=== PATIENT | female | born 1950 | race Caucasian/White ===

== ENCOUNTER 2016-02-10 08:20 | Outpatient (CLI) | payer MEDICARE, OTHER | END 2016-02-10 08:21 | disposition home or self-care (01) | DX: I10 Essential (primary) hypertension (principal); D50.8 Other iron deficiency anemias ==

== ENCOUNTER 2016-03-22 08:07 | Outpatient (CLI) | payer MEDICARE, OTHER | END 2016-03-22 08:08 | disposition home or self-care (01) | DX: I10 Essential (primary) hypertension (principal); D50.8 Other iron deficiency anemias ==

== ENCOUNTER 2016-10-18 08:03 | Outpatient (CLI) | payer MEDICARE, OTHER ==
[2016-10-18 20:05] LABS: FERRITIN 5.9 ng/mL (11.0-306.8)
[2016-10-18 20:09] LABS: FOLATE 6.42 ng/mL (5.90 - >24.8)
[2016-10-18 20:10] LABS: BASOPHILS # (AUTO) 0.1 10^3/uL (0.0-0.1); BASOPHILS % (AUTO) 0.8 %; EOSINOPHILS # (AUTO) 0.2 10^3/uL (0.0-0.7); EOSINOPHILS % (AUTO) 1.9 %; HCT - HEMATOCRIT 29.8 % (37.0-47.0); HGB - HEMOGLOBIN 9.2 g/dL (12.0-16.0); LYMPHOCYTES % (AUTO) 24.6 %; MEAN CORPUSCULAR HEMOGLOBIN 21.3 pg (27.0-31.0); MEAN CORPUSCULAR HGB CONC 30.7 g/dL (32.0-36.0); MEAN CORPUSCULAR VOLUME 69.5 fL (81.0-99.0); MONOCYTES # (AUTO) 0.7 10^3/uL (0.0-1.0); MONOCYTES % (AUTO) 8.3 %; NEUTROPHILS # (AUTO) 5.3 10^3/uL (1.5-6.6); NEUTROPHILS % (AUTO) 64.4 %; NUCLEATED RED BLOOD CELLS AUTO 0.1 /100WBC; RED BLOOD COUNT 4.29 10^6/uL (4.20-5.40); RED CELL DISTRIBUTION WIDTH 18.5 % (12.0-15.0); UNCORRECTED WHITE BLOOD COUNT 8.3 x10^3/uL; WHITE BLOOD COUNT 8.3 x10^3/uL (4.8-10.8)
[2016-10-18 20:34] LABS: ALBUMIN/GLOBULIN RATIO 1.1 (1.0-2.2); BILIRUBIN,TOTAL 0.3 mg/dL (0.2-1.0); CALCIUM 8.7 mg/dL (8.5-10.3); CREATININE 0.8 mg/dL (0.4-1.0); POTASSIUM 3.6 mmol/L (3.5-5.0); TOTAL PROTEIN 7.2 g/dL (6.7-8.2)
== END 2016-10-18 08:04 | disposition home or self-care (01) ==
LOC: LAB.N 08:03
PROVIDERS: ATTEND Family Medicine
DX: D50.8 Other iron deficiency anemias (principal); F33.1 Major depressive disorder, recurrent, moderate
CPT/HCPCS: 36415; 80053; 82607; 82728; 82746; 83540; 84466; 85025

== ENCOUNTER 2017-02-01 13:40 | Outpatient (CLI) | payer MEDICARE, OTHER ==
[2017-02-01 18:49] LABS: BASOPHILS # (AUTO) 0.1 10^3/uL (0.0-0.1); BASOPHILS % (AUTO) 1.4 %; EOSINOPHILS # (AUTO) 0.2 10^3/uL (0.0-0.7); EOSINOPHILS % (AUTO) 1.9 %; HCT - HEMATOCRIT 31.9 % (37.0-47.0); HGB - HEMOGLOBIN 9.6 g/dL (12.0-16.0); LYMPHOCYTES # (AUTO) 2.2 10^3/uL (1.5-3.5); LYMPHOCYTES % (AUTO) 24.6 %; MEAN CORPUSCULAR HEMOGLOBIN 20.7 pg (27.0-31.0); MEAN CORPUSCULAR VOLUME 68.8 fL (81.0-99.0); MEAN PLATELET VOLUME 8.6 fL (7.9-10.8); MONOCYTES # (AUTO) 0.7 10^3/uL (0.0-1.0); MONOCYTES % (AUTO) 7.6 %; NEUTROPHILS # (AUTO) 5.7 10^3/uL (1.5-6.6); NEUTROPHILS % (AUTO) 64.5 %; RED BLOOD COUNT 4.63 10^6/uL (4.20-5.40); RED CELL DISTRIBUTION WIDTH 20.3 % (12.0-15.0); UNCORRECTED WHITE BLOOD COUNT 8.9 x10^3/uL; WHITE BLOOD COUNT 8.9 x10^3/uL (4.8-10.8)
[2017-02-01 19:07] LABS: IRON 16 ug/dL (28-170); TOTAL IRON BINDING CAPACITY 585 ug/dL (250-450); TRANSFERRIN 418 mg/dL (192-382)
[2017-02-01 19:21] LABS: FERRITIN 7.2 ng/mL (11.0-306.8)
[2017-02-01 19:52] LABS: PLATELET ESTIMATE, MANUAL NORMAL (130-450,000) (NORMAL); PLATELET MORPHOLOGY NORMAL APPEARANCE (NORMAL)
== END 2017-02-01 13:41 | disposition home or self-care (01) ==
LOC: LAB.N 13:40
PROVIDERS: ATTEND Family Medicine
DX: D51.8 Other vitamin B12 deficiency anemias (principal); D50.8 Other iron deficiency anemias
CPT/HCPCS: 36415; 82607; 82728; 83540; 84466; 85025

== ENCOUNTER 2017-08-03 08:00 | Outpatient (CLI) | payer MEDICARE, OTHER ==
[2017-08-03 12:46] LABS: BASOPHILS # (AUTO) 0.1 10^3/uL (0.0-0.1); BASOPHILS % (AUTO) 0.9 %; EOSINOPHILS # (AUTO) 0.2 10^3/uL (0.0-0.7); EOSINOPHILS % (AUTO) 2.4 %; HGB - HEMOGLOBIN 8.8 g/dL (12.0-16.0); LYMPHOCYTES % (AUTO) 26.3 %; MEAN CORPUSCULAR HEMOGLOBIN 22.4 pg (27.0-31.0); MEAN CORPUSCULAR HGB CONC 31.4 g/dL (32.0-36.0); MEAN CORPUSCULAR VOLUME 71.5 fL (81.0-99.0); MEAN PLATELET VOLUME 8.5 fL (7.9-10.8); MONOCYTES # (AUTO) 0.6 10^3/uL (0.0-1.0); MONOCYTES % (AUTO) 8.2 %; NEUTROPHILS # (AUTO) 4.6 10^3/uL (1.5-6.6); NEUTROPHILS % (AUTO) 62.2 %; PLT - PLATELET COUNT 271 10^3/uL (130-450); RED BLOOD COUNT 3.94 10^6/uL (4.20-5.40); RED CELL DISTRIBUTION WIDTH 23.1 % (12.0-15.0); WHITE BLOOD COUNT 7.4 x10^3/uL (4.8-10.8)
[2017-08-03 13:02] LABS: FERRITIN 6.5 ng/mL (11.0-306.8)
[2017-08-03 13:57] LABS: PLATELET ESTIMATE, MANUAL NORMAL (130-450,000) (NORMAL); PLATELET MORPHOLOGY NORMAL APPEARANCE (NORMAL)
== END 2017-08-03 08:01 | disposition home or self-care (01) ==
LOC: LAB.N 08:00
PROVIDERS: ATTEND Family Medicine
DX: D51.8 Other vitamin B12 deficiency anemias (principal); D50.8 Other iron deficiency anemias
CPT/HCPCS: 36415; 82607; 82728; 85025

== ENCOUNTER 2018-02-16 13:45 | Outpatient (CLI) | payer MEDICARE, OTHER ==
[2018-02-16 19:01] LABS: BASOPHILS # (AUTO) 0.1 10^3/uL (0.0-0.1); BASOPHILS % (AUTO) 0.8 %; EOSINOPHILS # (AUTO) 0.1 10^3/uL (0.0-0.7); EOSINOPHILS % (AUTO) 1.5 %; HGB - HEMOGLOBIN 12.8 g/dL (12.0-16.0); LYMPHOCYTES # (AUTO) 2.3 10^3/uL (1.5-3.5); LYMPHOCYTES % (AUTO) 28.9 %; MEAN CORPUSCULAR HEMOGLOBIN 27.5 pg (27.0-31.0); MEAN CORPUSCULAR HGB CONC 31.9 g/dL (32.0-36.0); MEAN CORPUSCULAR VOLUME 86.2 fL (81.0-99.0); MEAN PLATELET VOLUME 8.9 fL (7.9-10.8); MONOCYTES # (AUTO) 0.5 10^3/uL (0.0-1.0); MONOCYTES % (AUTO) 6.1 %; NEUTROPHILS # (AUTO) 5.1 10^3/uL (1.5-6.6); NEUTROPHILS % (AUTO) 62.7 %; PLT - PLATELET COUNT 207 10^3/uL (130-450); RED BLOOD COUNT 4.64 10^6/uL (4.20-5.40); RED CELL DISTRIBUTION WIDTH 17.5 % (12.0-15.0); WHITE BLOOD COUNT 8.1 x10^3/uL (4.8-10.8)
[2018-02-16 19:27] LABS: PLATELET ESTIMATE, MANUAL NORMAL (130-450,000) (NORMAL); PLATELET MORPHOLOGY NORMAL APPEARANCE (NORMAL); RBC MORPHOLOGY (MULTIPLE) 1+ ANISOCYTOSIS (NORMAL)
[2018-02-16 19:44] LABS: ALBUMIN/GLOBULIN RATIO 1.3 (1.0-2.2); BILIRUBIN,TOTAL 0.4 mg/dL (0.2-1.0); CALCIUM 8.9 mg/dL (8.5-10.3); CREATININE 1.2 mg/dL (0.4-1.0); TOTAL PROTEIN 7.2 g/dL (6.7-8.2)
[2018-02-16 20:02] LABS: FERRITIN 42.5 ng/mL (11.0-306.8)
[2018-02-16 20:05] LABS: FOLATE 5.14 ng/mL (5.90 - >24.8)
== END 2018-02-16 23:59 | disposition home or self-care (01) ==
LOC: LAB.N 13:45
PROVIDERS: ATTEND Internal Medicine Hematology & Oncology
DX: D50.9 Iron deficiency anemia, unspecified (principal); N18.3 Chronic kidney disease, stage 3 (moderate); M79.12 Myalgia of auxiliary muscles, head and neck
CPT/HCPCS: 36415; 80053; 82607; 82728; 82746; 83540; 84466; 85025

== ENCOUNTER 2018-03-02 08:00 | Outpatient (CLI) | payer MEDICARE, OTHER ==
[2018-03-02 14:06] LABS: FOLATE 4.76 ng/mL (5.90 - >24.8)
== END 2018-03-02 23:59 | disposition home or self-care (01) ==
LOC: LAB.N 08:00
PROVIDERS: ATTEND Internal Medicine Hematology & Oncology
DX: D50.9 Iron deficiency anemia, unspecified (principal); M79.12 Myalgia of auxiliary muscles, head and neck; N18.3 Chronic kidney disease, stage 3 (moderate)
CPT/HCPCS: 36415; 82607; 82746

== ENCOUNTER 2019-08-18 13:36 | Outpatient (CLI) | payer MEDICARE, OTHER ==
[2019-08-18 17:39] LABS: HGB - HEMOGLOBIN 12.6 g/dL (12.0-16.0); MEAN CORPUSCULAR HEMOGLOBIN 29.6 pg (27.0-31.0); MEAN CORPUSCULAR HGB CONC 32.1 g/dL (32.0-36.0); MEAN CORPUSCULAR VOLUME 92.2 fL (81.0-99.0); MEAN PLATELET VOLUME 10.5 fL (7.9-10.8); RED BLOOD COUNT 4.25 10^6/uL (4.20-5.40); RED CELL DISTRIBUTION WIDTH 12.8 % (12.0-15.0); WHITE BLOOD COUNT 8.2 x10^3/uL (4.8-10.8)
== END 2019-08-18 13:37 | disposition home or self-care (01) ==
LOC: LAB.S 13:36
PROVIDERS: ATTEND Orthopaedic Surgery
DX: Z01.818 Encounter for other preprocedural examination (principal); E61.1 Iron deficiency; Z20.828 Contact with and (suspected) exposure to other viral communicable diseases
CPT/HCPCS: 36415; 85027

== ENCOUNTER 2020-03-06 16:03 | Emergency (ER) | payer MEDICARE, OTHER ==
[2020-03-06] MEDS ORDERED: DEXAMETHASONE 10 MG/ML VIAL IM STA (16:33)
[2020-03-06] MEDS ORDERED: KETOROLAC 30 MG/ML VIAL IM STA (16:33)
[2020-03-06 17:34] VITALS: BP 193/97
--- NOTE | 2020-03-07 19:06 | ED Physician Documentation ---
History of Present Illness - Stated complaint Stated Complaint: LT HAND PX - Chief complaint Chief Complaint: Ext Problem - History obtained from History obtained from: Patient - Additonal information Additional information: 69-year-old woman with past medical history of rheumatoid arthritis presents with left hand pain constant, gradual onset over the past 2 days, associated with swelling but no erythema, worse with range of motion of the hand, nonradiating. No fevers, no sensory or motor deficits. No other symptoms. Review of Systems Constitutional: denies: Fever, Chills Skin: denies: Rash, Lesions Musculoskeletal: reports: Extremity pain, Joint pain, Extremity swelling Neurologic: denies: Focal weakness, Numbness PD PAST MEDICAL HISTORY - Past Medical History Past Medical History: Yes Cardiovascular: Hypertension Neuro: Migraines - Past Surgical History Past Surgical History: Yes Ortho: Spine surgery - Present Medications Home Medications: Ambulatory Orders Medication Instructions Recorded Confirmed Naratriptan HCl [Amerge] 2.5 mg PO PRN PRN 03/06/20 03/06/20 predniSONE [Prednisone 21-TAB dose 10 mg PO QDAC #21 tab.ds.pk 03/06/20 pack] - Allergies Allergies/Adverse Reactions: Allergies Allergy/AdvReac Type Severity Reaction Status Date / Time No Known Drug Allergies Allergy Verified 03/06/20 16:06 - Social History Does the pt smoke?: No Smoking Status: Never smoker Does the pt drink ETOH?: No Does the pt have substance abuse?: No - Immunizations Immunizations are current?: No - POLST Patient has POLST: No Results - Vitals Vitals: Oxygen O2 Source Room air PD MEDICAL DECISION MAKING - ED course ED course: 69-year-old woman presents with rheumatoid arthritis flare. Will treat and discharge with return precautions. Follow-up with your mutuel cashier. Departure - Departure Disposition: 01 Home, Self Care Clinical Impression: Rheumatoid arthritis Condition: Good Instructions: ED Arthritis Rheumatoid Prescriptions: predniSONE [Prednisone 21-TAB dose pack] 10 mg PO QDAC #21 tab.ds.pk Comments: You were seen in the emergency department for a rheumatoid arthritis flare. You were given a injection of Decadron (a steroid) and Toradol (an anti- inflammatory). Return to the ED for any new or worsening symptoms. Follow-up with your mutuel cashier or primary doctor. Discharge Date/Time: 03/06/20 17:40
== END 2020-03-06 17:40 | disposition home or self-care (01) ==
LOC: ED 16:03
DX: M06.9 Rheumatoid arthritis, unspecified (principal); I10 Essential (primary) hypertension
CPT/HCPCS: 96372; 99283; 99284

== ENCOUNTER 2021-04-15 08:42 | Emergency (ER) | payer MEDICARE, OTHER ==
[2021-04-15] MEDS ORDERED: KETOROLAC 30 MG/ML VIAL IM STA (09:19)
[2021-04-15] MEDS ORDERED: predniSONE 20 MG TABLET PO STA (09:19)
--- NOTE | 2021-04-15 09:22 | ED Physician Documentation ---
History of Present Illness - Stated complaint Stated Complaint: RT LEG PX - Chief complaint Chief Complaint: Ext Problem - History obtained from History obtained from: Patient - Additonal information Additional information: The patient comes to the emergency department with chief complaint of right lower extremity pain. She describes this as being around her knee, but when pinpointed, it is actually located the distal lateral quadriceps. She states that it shoots up her leg, and there seems to be a fullness there. The patient denies any history of this prior. She denies any distinct injury. She states the pain is a sharp shooting pain and she mainly feels it when she walks. She denies any history of DVT. No shortness of breath or chest pain. She denies any clicking or popping of her knee. She did have a distant right knee replacement. The patient states that she has not been taking anything for the pain at home and describes it as a 2 out of 10 if she is not bearing weight and an 8 out of 10 if she does. The patient does have some back problems and is scheduled for surgery so states she may be walking differently, but she has not noticed this distinctly. Review of Systems Ten Systems: 10 systems reviewed and negative Constitutional: reports: Reviewed and negative Eyes: reports: Reviewed and negative Ears: reports: Reviewed and negative Nose: reports: Reviewed and negative Throat: reports: Reviewed and negative Cardiac: reports: Reviewed and negative Respiratory: reports: Reviewed and negative GI: reports: Reviewed and negative : reports: Reviewed and negative Skin: reports: Reviewed and negative Musculoskeletal: reports: Extremity pain, Extremity swelling, Reviewed and negative Neurologic: reports: Reviewed and negative Psychiatric: reports: Reviewed and negative Endocrine: reports: Reviewed and negative Immunocompromised: reports: Reviewed and negative PD PAST MEDICAL HISTORY - Past Medical History Cardiovascular: Hypertension Neuro: Migraines - Past Surgical History Past Surgical History: Yes Ortho: Spine surgery - Present Medications Home Medications: Ambulatory Orders Medication Instructions Recorded Confirmed Naratriptan HCl [Amerge] 2.5 mg PO PRN PRN 03/06/20 03/06/20 predniSONE [Prednisone 21-TAB dose 10 mg PO QDAC #21 tab.ds.pk 03/06/20 pack] Cyclobenzaprine [Flexeril] 10 mg PO TID PRN #20 tablet 04/15/21 Ibuprofen [Motrin] 800 mg PO Q8H PRN #30 tablet 04/15/21 - Allergies Allergies/Adverse Reactions: Allergies Allergy/AdvReac Type Severity Reaction Status Date / Time No Known Drug Allergies Allergy Verified 04/15/21 09:01 - Social History Does the pt smoke?: No Smoking Status: Never smoker Does the pt drink ETOH?: No Does the pt have substance abuse?: No - Immunizations Immunizations are current?: No - POLST Patient has POLST: No PD ED PE NORMAL - Vitals Vital signs reviewed: Yes - General General: Alert and oriented X 3, No acute distress, Well developed/nourished - HEENT HEENT: Atraumatic, PERRL, EOMI, Moist mucous membranes - Neck Neck: Supple, no meningeal sign - Cardiac Cardiac: Strong equal pulses - Respiratory Respiratory: No respiratory distress - Derm Derm: Normal color, Warm and dry, No rash - Extremities Extremities: No deformity, Other (Tenderness the distal lateral right quadriceps at approximately the 11 o'clock position radiating from the patella. Knee joint itself, including the patella, joint line, and posterior knee are nontender. No pain with passive range of motion. No mass or fluctuance. Mild localized edema, Obese leg) - Neuro Neuro: Alert and oriented X 3, floor specialist 2-12 intact, No motor deficit, No sensory deficit, Normal speech - Psych Psych: Normal mood, Normal affect Results - Vitals Vitals: Vital Signs - 24 hr 04/15/21 04/15/21 08:51 10:42 Temperature 36.6 C Heart Rate 71 70 Respiratory 16 18 Rate Blood Pressure 172/92 H 170/85 H O2 Saturation 94 95 Oxygen O2 Source Room air - Rads (name of study) Right knee x-ray Radiology: Final report received, EMP read indepedently, See rad report (Hardware intact, no acute finding) Venous duplex ultrasound right lower extremity Radiology: Final report received, EMP read indepedently, See rad report (No DVT) PD MEDICAL DECISION MAKING - ED course Complexity details: reviewed results, re-evaluated patient, considered differential, d/w patient ED course: The patient was treated with Toradol and worked up with x-ray and ultrasound, Both of which were unremarkable. We have discussed symptomatic management at home. I suspect a strain of her quadriceps musculature/knee, most likely secondary to posturing due to her low back pain. We have discussed the need for follow-up and the usual indications for return. Departure - Departure Disposition: 01 Home, Self Care Clinical Impression: Muscle spasm Leg pain Qualifiers: Laterality: right Qualified Code(s): M79.604 - Pain in right leg Condition: Stable Instructions: ED Strain Muscle Ext Prescriptions: Cyclobenzaprine [Flexeril] 10 mg PO TID PRN #20 tablet PRN Reason: Spasms Ibuprofen [Motrin] 800 mg PO Q8H PRN #30 tablet PRN Reason: PAIN &/OR FEVER Comments: Your ultrasound and x-ray look good. There is no evidence of a blood clot or any problems with your hardware. Most likely with your back pain, you have been stressing your leg a little differently than usual and has caused some pain and spasm in the quadriceps muscle. You may use the muscle relaxer to help with this, as well as the anti-inflammatory medication. Please follow-up with your doctor for further concerns regarding your leg. Discharge Date/Time: 04/15/21 10:56
--- NOTE | 2021-04-15 09:59 | XRAY Report ---
PROCEDURE: Knee 3 View RT INDICATIONS: knee pain TECHNIQUE: 3 views of the right knee(s) were acquired. COMPARISON: None. FINDINGS: Bones: Postoperative changes of total right knee replacement. No pericardial hardware lucency or frac ture. Soft tissues: No joint effusion. No suspicious soft tissue calcifications. IMPRESSION: Postoperative changes of right knee replacement. No acute abnormality. Reviewed by: Jesus Sommers on 04/15/2021 9:58 AM [facility] Approved by: Jesus Sommers on 04/15/2021 9:58 AM PST Station ID: [id number]
[2021-04-15 10:43] VITALS: BP 170/85
--- NOTE | 2021-04-15 11:12 | Ultrasound Report ---
PROCEDURE: Duplex Ext Veins Right INDICATIONS: leg pain, swelling, atraumatic TECHNIQUE: Real-time imaging, as well as color and pulse Doppler interrogation, were performed of the lower extr emity deep veins from the inguinal ligament to the popliteal fossa. COMPARISON: None. FINDINGS: The deep veins are normally compressible, and free of intraluminal thrombus. Color and pu lse Doppler demonstrate normal phasic intraluminal flow. There is normal augmentation response to di stal compression maneuver. IMPRESSION: No sonographic evidence of DVT. Reviewed by: Josue Carrillo MD on 04/15/2021 11:11 AM PST Approved by: Josue Carrillo MD on 04/15/2021 11:11 AM PST Station ID: [id number]
== END 2021-04-15 10:56 | disposition home or self-care (01) ==
LOC: ED 08:42
DX: M79.661 Pain in right lower leg (principal); M62.838 Other muscle spasm; I10 Essential (primary) hypertension
CPT/HCPCS: 73562; 93971; 96372; 99282; 99284; J7512